=== PATIENT | male | born 1975 | race Caucasian/White ===

== ENCOUNTER 2023-08-29 22:03 | Emergency (ER) | payer MEDICAID ==
[~2023-08-29] VITALS: Ht 185.4 cm; Wt 79.8 kg
[2023-08-29 22:15] VITALS: BP 130/82; PULSE 96; RESP 16; TEMP 99.2; O2SAT 97
[2023-08-29] MEDS ORDERED: CLIN-197 PO (22:39)
== END 2023-08-29 22:49 | disposition home or self-care (01) ==
LOC: ER 22:04
DX: S60.410A Abrasion of right index finger, initial encounter (principal); X58.XXXA Exposure to other specified factors, initial encounter; Y93.89 Activity, other specified; Y92.89 Other specified places as the place of occurrence of the external cause; Y99.8 Other external cause status
CPT/HCPCS: 99283

== ENCOUNTER 2023-09-01 12:56 | Emergency (ER) | payer MEDICAID ==
[~2023-09-01] VITALS: Ht 182.9 cm; Wt 195.0 kg
[~2023-09-01 12:56] MED LIST: CLIN-197 PO
[2023-09-01 13:04] VITALS: BP 168/98; PULSE 85; RESP 18; TEMP 98; O2SAT 98
== END 2023-09-01 15:10 | disposition home or self-care (01) ==
LOC: ER 12:56
DX: S97.82XA Crushing injury of left foot, initial encounter (principal); S97.81XA Crushing injury of right foot, initial encounter; W22.8XXA Striking against or struck by other objects, initial encounter; Y93.89 Activity, other specified; Y92.89 Other specified places as the place of occurrence of the external cause; Y99.8 Other external cause status
CPT/HCPCS: 73620; 99283

== ENCOUNTER 2023-09-08 13:06 | Emergency (ER) | payer MEDICAID ==
[~2023-09-08] VITALS: Ht 185.4 cm; Wt 57.7 kg
[2023-09-08 13:13] VITALS: BP 144/94; PULSE 87; RESP 14; TEMP 98.4; O2SAT 97
== END 2023-09-08 14:48 | disposition left against medical advice (07) ==
LOC: ER 13:07
DX: S40.921A Unspecified superficial injury of right upper arm, initial encounter (principal); Z53.21 Procedure and treatment not carried out due to patient leaving prior to being seen by health care provider; X58.XXXA Exposure to other specified factors, initial encounter; Y93.89 Activity, other specified; Y92.89 Other specified places as the place of occurrence of the external cause; Y99.8 Other external cause status

== ENCOUNTER 2023-09-21 13:08 | Emergency (ER) | payer MEDICAID ==
[~2023-09-21] VITALS: Ht 185.4 cm; Wt 84.1 kg
[2023-09-21 13:15] VITALS: TEMP 97.8
[2023-09-21] MEDS ORDERED: DOXY100C77 PO (14:45)
[2023-09-21] MEDS ORDERED: CEPH-585 PO (14:45)
[2023-09-21] MEDS: cephalexin 250mg capsule PO ONE (14:57)
[2023-09-21] MEDS: DOXYCYCLINE 100MG CAPSULE PO STA (14:57)
[2023-09-21 15:09] VITALS: BP 129/88; PULSE 68; RESP 18; O2SAT 98
== END 2023-09-21 15:14 | disposition home or self-care (01) ==
LOC: ER 13:08
DX: S50.901A Unspecified superficial injury of right elbow, initial encounter (principal); S80.921A Unspecified superficial injury of right lower leg, initial encounter; Z79.2 Long term (current) use of antibiotics; X58.XXXA Exposure to other specified factors, initial encounter; Y93.89 Activity, other specified; Y92.89 Other specified places as the place of occurrence of the external cause; Y99.8 Other external cause status
CPT/HCPCS: 99283